=== PATIENT | female | born 1990 | race American Indian/Alaskan Native ===

== ENCOUNTER 2019-11-03 01:31 | Emergency (ER) | payer SELFPAY ==
[2019-11-03] MEDS ORDERED: HYDROmorphone 1 MG/1 ML INJ IV ONE (02:15)
[2019-11-03] MEDS ORDERED: SODIUM CHLORIDE 0.9% 1000 ML 1,000 ML IV ONE (02:15)
--- NOTE | 2019-11-03 02:15 | Emergency Department Report ---
ED Abdominal Pain HPI - General Chief Complaint: Abdominal Pain Stated Complaint: GALLBLADDER SYMPTOMS ABD PAIN NAUSEA VOMITING PUI?: No Time Seen by Provider: 11/03/19 02:06 Source: patient Mode of arrival: Ambulatory Limitations: No Limitations - History of Present Illness Initial Comments: Patient is a 29-year-old female that presents emergency room with multiple complaints. Patient's complaints include gallbladder pain in the right upper quadrant, suprapubic pain, nausea and vomiting, menstrual cramps, stomach spasms. Patient states that her abdominal pain is radiating to the back. Patient states her pain is a 10 out of 10. Patient states she is taking 3 times per day 800 mg ibuprofen with minimal relief. Patient states her pain is worsening. Patient states she has had gallbladder pain for a year however it s tarted yesterday her right upper quadrant pain. Patient states that her suprapubic pain and menstrual cramps started 2 days ago. Patient states her last menstrual period was 2 months ago and she is unsure if she is . Patient states she is sexually active. Patient denies dysuria. Patient states that her nausea and vomiting started yesterday and is worsening. Patient denies blood in her vomitus. Patient denies constipation. Patient denies recent travel. Patient denies recent international travel. Patient denies exposure to the novel coronavirus. Patient denies sick contacts. Patient denies fever and chills. Patient denies cough. Patient denies diarrhea. Patient denies coming in contact with anybody with symptoms of the novel coronavirus. MD Complaint: abdominal pain -: Sudden Location: RUQ, suprapubic Radiation: back Migration to: no migration Severity: severe Severity scale (0 -10): 10 Quality: stabbing Consistency: constant Improves With: rest Worsens With: movement Associated Symptoms: nausea, vomiting. denies: diarrhea, fever, chills, constipation, dysuria, hematemesis, hematochezia, melena, hematuria, syncope Treatments Prior to Arrival: NSAIDs - Related Data LMP (females 10-50): 3 months Home Medications Medication Instructions Recorded Confirmed Last Taken Amoxicillin/K Clav Tab [Augmentin 1 tab PO BID 05/14/13 05/14/13 05/13/13 875MG] Promethazine /Codeine 10 ml PO Q6H 03/16/14 03/16/14 03/15/14 [Phenergan/Codeine 6.25-10 mg/5 ml] Previous Rx's Medication Instructions Recorded Last Taken Type Ibuprofen [Motrin] 600 mg PO Q8H PRN #60 tablet 05/14/13 Unknown Rx Loratadine (Nf) [Claritin] 10 mg PO DAILY #30 tablet 05/14/13 Unknown Rx predniSONE [Deltasone] 50 mg PO QDAY #5 tab 05/14/13 Unknown Rx HYDROcodone/APAP 7.5-325 [[place] 1 each PO Q6HR PRN #10 tablet 11/03/19 Unknown Rx 7.5/325] Ondansetron [Zofran Odt] 4 mg PO Q6HR PRN #25 tab.rapdis 11/03/19 Unknown Rx Sulfamethoxazole/Trimethoprim 1 each PO BID 10 Days #20 tablet 11/03/19 Unknown Rx [Bactrim DS TAB] Allergies Allergy/AdvReac Type Severity Reaction Status Date / Time No Known Allergies Allergy Unverified 05/14/13 03:10 ED Review of Systems ROS: Stated complaint: GALLBLADDER SYMPTOMS ABD PAIN NAUSEA VOMITING Other details as noted in HPI Constitutional: denies: chills, fever Eyes: denies: eye pain, eye discharge, vision change ENT: denies: ear pain, throat pain Respiratory: denies: cough, shortness of breath, wheezing Cardiovascular: denies: chest pain, palpitations Endocrine: no symptoms reported Gastrointestinal: abdominal pain, nausea, vomiting. denies: diarrhea Genitourinary: denies: urgency, dysuria, discharge Musculoskeletal: denies: back pain, joint swelling, arthralgia Skin: denies: rash, lesions Neurological: denies: headache, weakness, paresthesias Psychiatric: denies: anxiety, depression Hematological/Lymphatic: denies: easy bleeding, easy bruising ED Past Medical Hx - Past Medical History Previous Medical History?: Yes Hx Asthma: Yes Additional medical history: Anemia. Gallbladder disease - Surgical History Past Surgical History?: No - Family History Family history: no significant - Social History Smoking Status: Former Smoker Substance Use Type: None - Medications Home Medications: Home Medications Medication Instructions Recorded Confirmed Last Taken Type Amoxicillin/K Clav Tab [Augmentin 1 tab PO BID 05/14/13 05/14/13 05/13/13 History 875MG] Ibuprofen [Motrin] 600 mg PO Q8H PRN #60 tablet 05/14/13 Unknown Rx Loratadine (Nf) [Claritin] 10 mg PO DAILY #30 tablet 05/14/13 Unknown Rx Promethazine /Codeine 10 ml PO Q6H 05/14/13 05/14/13 05/13/13 History [Phenergan/Codeine 6.25-10 mg/5 ml] predniSONE [Deltasone] 50 mg PO QDAY #5 tab 05/14/13 Unknown Rx HYDROcodone/APAP 7.5-325 [[place] 1 each PO Q6HR PRN #10 tablet 11/03/19 Unknown Rx 7.5/325] Ondansetron [Zofran Odt] 4 mg PO Q6HR PRN #25 tab.rapdis 11/03/19 Unknown Rx Sulfamethoxazole/Trimethoprim 1 each PO BID 10 Days #20 tablet 11/03/19 Unknown Rx [Bactrim DS TAB] ED Physical Exam - General Limitations: No Limitations General appearance: alert, in no apparent distress - Head Head exam: Present: atraumatic, normocephalic - Eye Eye exam: Present: normal appearance - ENT ENT exam: Present: mucous membranes moist - Neck Neck exam: Present: normal inspection - Respiratory Respiratory exam: Present: normal lung sounds bilaterally. Absent: respiratory distress - Cardiovascular Cardiovascular Exam: Present: regular rate, normal rhythm. Absent: systolic murmur, diastolic murmur, rubs, gallop - GI/Abdominal GI/Abdominal exam: Present: soft, tenderness (Generalized tenderness. Right upper quadrant tenderness to palpation.), normal bowel sounds - Rectal Rectal exam: Present: deferred - Extremities Exam Extremities exam: Present: normal inspection, full ROM, normal capillary refill. Absent: tenderness, calf tenderness - Back Exam Back exam: Present: normal inspection, full ROM. Absent: tenderness, CVA tenderness (R), CVA tenderness (L), muscle spasm - Neurological Exam Neurological exam: Present: alert, oriented X3 - Psychiatric Psychiatric exam: Present: normal affect, normal mood - Skin Skin exam: Present: warm, dry, intact, normal color. Absent: rash ED Course Vital Signs 11/03/19 11/03/19 11/03/19 01:40 02:40 03:00 Temperature 98.0 F Pulse Rate 88 82 Respiratory 16 19 Rate Blood Pressure 115/70 116/63 O2 Sat by Pulse 99 100 99 Oximetry 11/03/19 04:00 Temperature Pulse Rate 76 Respiratory 17 Rate Blood Pressure O2 Sat by Pulse 99 Oximetry - Reevaluation(s) Reevaluation #1: Patient complaining of nausea and vomiting. Patient will be given Zofran. 11/03/19 0310 Reevaluation #2: Patient is a complaint nausea and vomiting. Patient will be given another dose of Zofran. 11/03/19 04:08 Reevaluation #3: Patient given pain meds, fluids and antiemetics and patient states she is feeling much better. I discussed all results and clinical findings with patient. I discussed plan of care with patient. Patient agrees with plan of care. Patient is stable for discharge. Patient will be discharged home. Patient given discharge instructions. Patient voiced understanding of discharge instructions. 11/03/19 05:09 ED Medical Decision Making - Lab Data Result diagrams: 11/03/19 01:53 11/03/19 01:53 - Radiology Data Radiology results: report reviewed CT abdomen pelvis w con INDICATION: Patient complains of R.U.Q. abdominal pain with nausea and vomiting.. TECHNIQUE: All CT scans at this location are performed using the following dose modulation technique: Automated exposure control. CONTRAST: Omnipaque 300, 100 cc IV injection. COMPARISON: None available. CT ABDOMEN: The parenchymal organs are unremarkable in appearance. Negative for abdominal mass, fluid or inflammation. The bowel is not dilated or thickened. The gallbladder contains multiple stones. There is no adjacent inflammation. A fat-containing umbilical hernia is small. CT PELVIS: Negative for mass, fluid or inflammation. The appendix is normal. IMPRESSION: Gallstones. - Medical Decision Making Patient is a 29-year-old female that presents emergency room for multiple complaints. Patient complained abdominal pain, biliary colic pain, nausea, vomiting, amenorrhea since August. Patient had labs done which were essentially unremarkable. Patient's was negative. Patient has CT scan with IV contrast that was negative for acute findings of her gallstones. Patient's clinical findings are consistent with UTI, biliary colic and amenorrhea. Patient stable for discharge. Patient discharged home with pain meds, antiemetics and antibiotics. Patient given fluids, antibiotics and antiemetics in the ER and the patient responded well to therapy. Patient's pain and nausea resolved prior to discharge. - Differential Diagnosis Biliary colic, gallstones, cholecystitis, UTI, amenorrhea Critical care attestation.: If time is entered above; I have spent that time in minutes in the direct care of this critically ill patient, excluding procedure time. ED Disposition Clinical Impression: Biliary colic, Amenorrhea Abdominal pain Qualifiers: Abdominal location: generalized Qualified Code(s): R10.84 - Generalized abdominal pain UTI (urinary tract infection) Qualifiers: Urinary tract infection type: acute cystitis Hematuria presence: with hematuria Qualified Code(s): N30.01 - Acute cystitis with hematuria Gallstone Qualifiers: Cholecystitis presence: without cholecystitis Biliary obstruction: without biliary obstruction Qualified Code(s): K80.20 - Calculus of gallbladder without cholecystitis without obstruction Disposition: TO HOME OR SELFCARE Is pt being admited?: No Does the pt Need Aspirin: No Condition: Stable Instructions: Biliary Colic (ED), Urinary Tract Infection in Women (ED), Abdo joelle Pain (ED) Additional Instructions: Patient to follow-up with primary care in 2 to 3 days. Patient to follow-up with [facility] [facility] in 2 to 3 days. Patient to follow-up with general surgery in 2 to 3 days. Patient to rest. Patient to increase water. Patient to avoid strenuous exercise or heavy lifting until cleared by general surgery and primary care.. Patient to take Tylenol or ibuprofen as needed for pain. Patient to take meds as directed. Patient to return to the ER if condition worsens, changes or new symptoms arise. Prescriptions: Sulfamethoxazole/Trimethoprim [Bactrim DS TAB] 1 each PO BID 10 Days #20 tablet HYDROcodone/APAP 7.5-325 [[place] 7.5/325] 1 each PO Q6HR PRN #10 tablet PRN Reason: Pain Ondansetron [Zofran Odt] 4 mg PO Q6HR PRN #25 tab.rapdis PRN Reason: Nausea And Vomiting Referrals: PRIMARY CARE, [Primary Care Provider] - 2-3 Days KINA TAPIA MD [Staff Physician] - 2-3 Days LESLY ROOT DO [Staff Physician] - 2-3 Days Time of Disposition: 05:17
[2019-11-03 02:20] LABS: Hematocrit 32.2 % (30.3-42.9); Hemoglobin 10.7 gm/dl (10.1-14.3); Mean Corpuscular HGB Conc 33 % (30-34); Mean Corpuscular Volume 87 fl (79-97); Platelet Count 373 K/mm3 (140-440); Red Blood Count 3.71 M/mm3 (3.65-5.03)
[2019-11-03 02:32] LABS: Bacteria,Urine 1+ /HPF (Negative); Bilirubin,Urine NEG (Negative); Blood,Urine LG (Negative); Color,Urine Yellow (Yellow); Mucus,Urine 3+ /HPF; Protein,Urine <15 mg/dL mg/dL (Negative)
[2019-11-03 02:33] LABS: Alanine Aminotransferase 15 units/L (7-56); Albumin 3.7 g/dL (3.9-5); BUN/Creatinine Ratio 11; Blood Urea Nitrogen 9 mg/dL (7-17); Calcium 8.7 mg/dL (8.4-10.2); Hemolysis Index 64
[2019-11-03 02:58] LABS: RBC Morphology Normal; Total Cells Counted 100
[2019-11-03] MEDS ORDERED: ONDANSETRON 4 MG/2 ML INJ ONE (03:06)
[2019-11-03] MEDS ORDERED: ONDANSETRON 4 MG/2 ML INJ IV ONE ×2 (03:11→03:44)
[2019-11-03 04:09] VITALS: BP 116/63
--- NOTE | 2019-11-03 04:11 | Cat Scan Report ---
CT abdomen pelvis w con INDICATION: Patient complains of R.U.Q. abdominal pain with nausea and vomiting.. TECHNIQUE: All CT scans at this location are performed using the following dose modulation technique: Automated exposure control. CONTRAST: Omnipaque 300, 100 cc IV injection. COMPARISON: None available. CT ABDOMEN: The parenchymal organs are unremarkable in appearance. Negative for abdominal mass, fluid or inflammation. The bowel is not dilated or thickened. The gallbladder contains multiple stones. There is no adjacent inflammation. A fat-containing umbilical hernia is small. CT PELVIS: Negative for mass, fluid or inflammation. The appendix is normal. IMPRESSION: Gallstones. Signer Name: Hugo De Los Santos MD Signed: 11/03/2019 4:07 AM Workstation Name: [id number]
[2019-11-03] MEDS ORDERED: cefTRIAXone/NS 1 GM/50 ML 1 GM/50 ML BAG IV ONE (04:56)
== END 2019-11-03 05:20 | disposition home or self-care (01) ==
LOC: ED 01:31
DX: K80.20 Calculus of gallbladder without cholecystitis without obstruction (principal); N39.0 Urinary tract infection, site not specified; J45.909 Unspecified asthma, uncomplicated; D64.9 Anemia, unspecified; Z87.891 Personal history of nicotine dependence; Z79.899 Other long term (current) drug therapy
CPT/HCPCS: 36415; 74177; 80053; 81001; 84703; 85007; 85025; 87086; 96365; 96375; 96376; 99284; J1170; J2405; J7030; Q9967

== ENCOUNTER 2020-01-13 20:06 | Emergency (ER) | payer BC ==
[2020-01-13 20:39] LABS: Basophils # (Auto) 0.1 K/mm3 (0.0-0.1); Basophils % (Auto) 0.8 % (0.0-1.8); Eosinophils # (Auto) 0.1 K/mm3 (0.0-0.4); Eosinophils % (Auto) 1.3 % (0.0-4.3); Hematocrit 30.7 % (30.3-42.9); Hemoglobin 10.1 gm/dl (10.1-14.3); Lymphocytes # (Auto) 4.5 K/mm3 (1.2-5.4); Lymphocytes % (Auto) 42.9 % (13.4-35.0); Mean Corpuscular HGB Conc 33 % (30-34); Mean Corpuscular Volume 88 fl (79-97); Monocytes # (Auto) 0.8 K/mm3 (0.0-0.8); Monocytes % (Auto) 7.5 % (0.0-7.3); Platelet Count 368 K/mm3 (140-440); Red Blood Count 3.51 M/mm3 (3.65-5.03); Red Cell Distribution Width 15.6 % (13.2-15.2)
[2020-01-13 20:52] LABS: Bilirubin,Urine NEG (Negative); Blood,Urine LG (Negative); Color,Urine Yellow (Yellow); Mucus,Urine 3+ /HPF
[2020-01-13 20:54] LABS: Alanine Aminotransferase 14 units/L (7-56); BUN/Creatinine Ratio 10; Blood Urea Nitrogen 8 mg/dL (7-17); Hemolysis Index 6
[2020-01-13 21:01] LABS: HCG Qualitative,Urine Negative (Negative)
[2020-01-13] MEDS ORDERED: KETOROLAC 30 MG/1 ML INJ IV ONE (22:45)
[2020-01-13] MEDS ORDERED: fentaNYL 100 MCG/2 ML INJ IV ONE (22:45)
[2020-01-13] MEDS ORDERED: ONDANSETRON 4 MG/2 ML INJ IV ONE (22:45)
--- NOTE | 2020-01-13 22:48 | Emergency Department Report ---
HPI - General Chief Complaint: Abdominal Pain Time Seen by Provider: 01/13/20 22:35 - HPI HPI: Room 3 The patient is a 29-year-old female presenting with a chief complaint of pelvic cramping. The patient states she has had lower abdominal cramping and back pain for the past 18 days associated with vaginal bleeding. Patient states she goes through approximately 2 pads per day but passes large clots vaginally. Patient admits to nausea but denies vomiting. Patient states she has been compliant with her oral contraceptive for the past 3 months. Patient denies history of fever. Patient also complains of pain in the right upper quadrant which is chronic from cholelithiasis. Patient currently gives her pelvic pain a score of 12/10." ED Past Medical Hx - Past Medical History Previous Medical History?: Yes Hx Asthma: Yes Additional medical history: Anemia. Gallbladder disease - Surgical History Past Surgical History?: No - Family History Family history: no significant - Social History Smoking Status: Former Smoker Substance Use Type: None (Denies illicit drug use), Alcohol (Moderate) - Medications Home Medications: Home Medications Medication Instructions Recorded Confirmed Last Taken Type Amoxicillin/K Clav Tab [Augmentin 1 tab PO BID 05/14/13 05/14/13 05/13/13 History 875MG] Ibuprofen [Motrin] 600 mg PO Q8H PRN #60 tablet 05/14/13 Unknown Rx Loratadine (Nf) [Claritin] 10 mg PO DAILY #30 tablet 05/14/13 Unknown Rx Promethazine /Codeine 10 ml PO Q6H 05/14/13 05/14/13 05/13/13 History [Phenergan/Codeine 6.25-10 mg/5 ml] predniSONE [Deltasone] 50 mg PO QDAY #5 tab 05/14/13 Unknown Rx HYDROcodone/APAP 7.5-325 [[place] 1 each PO Q6HR PRN #10 tablet 11/03/19 Unknown Rx 7.5/325] Ondansetron [Zofran Odt] 4 mg PO Q6HR PRN #25 tab.rapdis 11/03/19 Unknown Rx Sulfamethoxazole/Trimethoprim 1 each PO BID 10 Days #20 tablet 11/03/19 Unknown Rx [Bactrim DS TAB] Ciprofloxacin HCl [Ciprofloxacin 500 mg PO Q12HR #6 tab 01/14/20 Unknown Rx TAB] HYDROcodone/APAP 5-325 [[place] 1 - 2 each PO Q6HR PRN #10 tablet 01/14/20 Unknown Rx 5/325] Ibuprofen [Motrin 800 MG tab] 800 mg PO Q8HR PRN #20 tablet 01/14/20 Unknown Rx ED Review of Systems ROS: Stated complaint: ABD PAINS Other details as noted in HPI Constitutional: denies: fever Eyes: denies: eye pain ENT: denies: throat pain Respiratory: no symptoms reported Endocrine: no symptoms reported Gastrointestinal: abdominal pain. denies: nausea, vomiting Genitourinary: abnormal menses. denies: dysuria Musculoskeletal: back pain Skin: denies: change in color Neurological: denies: headache Physical Exam - Physical Exam Vital Signs: Vital Signs 01/13/20 20:17 Temperature 98.1 F Pulse Rate 98 H Respiratory 18 Rate Blood Pressure 130/83 [Right] O2 Sat by Pulse 98 Oximetry Physical Exam: GENERAL: The patient is well-developed well-nourished female standing up leaning over stretcher appearing to be in mild discomfort. Patient states she feels better in this position HEENT: Normocephalic. Atraumatic. Extraocular motions are intact. Patient has moist mucous membranes. NECK: Supple. Trachea midline CHEST/LUNGS: Clear to auscultation. There is no respiratory distress noted. HEART/CARDIOVASCULAR: Regular. There is no tachycardia. There is no gallop rub or murmur. ABDOMEN: Abdomen is soft, with diffuse discomfort to palpation but greatest in the lower pelvis. There is no rebound or guarding. Patient has normal bowel sounds. There is no abdominal distention. SKIN: There is no rash. There is no edema. There is no diaphoresis. NEURO: The patient is awake, alert, and oriented. The patient is cooperative. The patient has normal speech MUSCULOSKELETAL: There is no evidence of acute injury. ED Course Vital Signs 01/13/20 20:17 Temperature 98.1 F Pulse Rate 98 H Respiratory 18 Rate Blood Pressure 130/83 [Right] O2 Sat by Pulse 98 Oximetry ED Medical Decision Making - Lab Data Result diagrams: 01/13/20 20:21 01/13/20 20:21 Laboratory Tests 01/13/20 01/13/20 01/13/20 20:21 20:21 20:27 WBC 10.5 RBC 3.51 L Hgb 10.1 Hct 30.7 MCV 88 MCH 29 MCHC 33 RDW 15.6 H Plt Count 368 Lymph % (Auto) 42.9 H Edwards % (Auto) 7.5 H Eos % (Auto) 1.3 Baso % (Auto) 0.8 Lymph # (Auto) 4.5 Edwards # (Auto) 0.8 Eos # (Auto) 0.1 Baso # (Auto) 0.1 Seg Neutrophils % 47.5 Seg Neutrophils # 5.0 Sodium 137 Potassium 3.7 Chloride 103.6 Carbon Dioxide 22 Anion Gap 15 BUN 8 Creatinine 0.8 Estimated GFR > 60 BUN/Creatinine Ratio 10 Glucose 99 Calcium 9.0 Total Bilirubin 0.20 AST 22 ALT 14 Alkaline Phosphatase 77 Total Protein 7.1 Albumin 4.0 Albumin/Globulin Ratio 1.3 Urine Color Yellow Urine Turbidity Slightly-cloudy Urine pH 6.0 Ur Specific [place] 1.021 Urine Protein 30 mg/dl Urine Glucose (UA) Neg Urine Ketones Neg Urine Blood Lg Urine Nitrite Pos Urine Bilirubin Neg Urine Urobilinogen 2.0 Ur Leukocyte Esterase Tr Urine WBC (Auto) 9.0 H Urine RBC (Auto) 30.0 U Epithel Cells (Auto) 21.0 H Urine Mucus 3+ Urine HCG, Qual Negative - Radiology Data Radiology results: report reviewed (Pelvic ultrasound), image reviewed (Pelvic ultrasound) [address] [address] Ultrasound Report Signed Patient: ISABELLA HARMAN MR#: [id number] : 0 1990 Acct:[id number] Age/Sex: 29 / F ADM Date: 01/13/20 Loc: ED Attending Dr: Ordering Physician: CHIN GALLEGOS MD Date of Service: 01/13/20 Procedure(s): US transvaginal Accession Number(s): [id number] cc: CHIN GALLEGOS MD ULTRASOUND PELVIS INDICATION / CLINICAL INFORMATION: Metromenorrhagia, pelvic cramping. TECHNIQUE: Transabdominal and Transvaginal. Duplex Color Doppler used: Yes. COMPARISON: None available FINDINGS: UTERUS: Present. - Appearance (if present): No significant abnormality. - Size in cm (if present): 6.0 x 2.5 x 4.0. - Endometrial Complex (if present): No significant abnormality. Measures 0.5 cm. - Mass lesions: None. - Additional findings: None. RIGHT ADNEXA: No significant ovarian cyst or mass. Normal color Doppler blood flow. LEFT ADNEXA: No significant ovarian cyst or mass. Normal color Doppler blood flow. URINARY BLADDER: No significant abnormality. FREE FLUID: None. ADDITIONAL FINDINGS: None. IMPRESSION: 1. No significant abnormality. Signer Name: Ronni Ziegler MD Signed: 01/13/2020 11:59 PM Workstation Name: [id number] Transcribed By: ROBERTO Dictated By: Ronni Ziegler MD Electronically Authenticated By: Ronni Ziegler MD Signed Date/Time: 01/13/202358 DD/ 57 TD/TT: - Differential Diagnosis Metromenorrhagia, uterine fibroids, , ectopic , missed ab Critical care attestation.: If time is entered above; I have spent that time in minutes in the direct care of this critically ill patient, excluding procedure time. ED Disposition Clinical Impression: Metrorrhagia, Pelvic cramping Disposition: TO HOME OR SELFCARE Is pt being admited?: No Does the pt Need Aspirin: No Condition: Stable Instructions: Abdominal Pain (ED), Metrorrhagia, [id number], Menorrhagia, [id number] Additional Instructions: Return to the emergency department should you develop worsening symptoms, inability to tolerate food or liquids, high fever or any other concerns Prescriptions: Ciprofloxacin HCl [Ciprofloxacin TAB] 500 mg PO Q12HR #6 tab Ibuprofen [Motrin 800 MG tab] 800 mg PO Q8HR PRN #20 tablet PRN Reason: Pain, Moderate (4-6) HYDROcodone/APAP 5-325 [[place] 5/325] 1 - 2 each PO Q6HR PRN #10 tablet PRN Reason: Pain Referrals: GISELLE BURROUGHS NP-C [Primary Care Provider] - 3-5 Days SHAKEEL PERDOMO CNM [Advanced Practice Nurse] - SON[place] (It is important that you follow-up with your [facility] as soon as possible for further management) Time of Disposition: 00:18
--- NOTE | 2020-01-14 00:03 | Ultrasound Report ---
ULTRASOUND PELVIS INDICATION / CLINICAL INFORMATION: Metromenorrhagia, pelvic cramping. TECHNIQUE: Transabdominal and Transvaginal. Duplex Color Doppler used: Yes. COMPARISON: None available FINDINGS: UTERUS: Present. - Appearance (if present): No significant abnormality. - Size in cm (if present): 6.0 x 2.5 x 4.0. - Endometrial Complex (if present): No significant abnormality. Measures 0.5 cm. - Mass lesions: None. - Additional findings: None. RIGHT ADNEXA: No significant ovarian cyst or mass. Normal color Doppler blood flow. LEFT ADNEXA: No significant ovarian cyst or mass. Normal color Doppler blood flow. URINARY BLADDER: No significant abnormality. FREE FLUID: None. ADDITIONAL FINDINGS: None. IMPRESSION: 1. No significant abnormality. Signer Name: Ronni Ziegler MD Signed: 01/13/2020 11:59 PM Workstation Name: [id number]
[2020-01-14 02:53] VITALS: BP 97/60
== END 2020-01-14 02:53 | disposition home or self-care (01) ==
LOC: ED 20:06
DX: N92.1 Excessive and frequent menstruation with irregular cycle (principal); R10.2 Pelvic and perineal pain; J45.909 Unspecified asthma, uncomplicated; Z87.891 Personal history of nicotine dependence; Z79.1 Long term (current) use of non-steroidal anti-inflammatories (NSAID); Z79.2 Long term (current) use of antibiotics; Z79.899 Other long term (current) drug therapy
CPT/HCPCS: 36415; 76830; 76856; 80053; 81001; 81025; 85025; 87086; 96374; 96375; 99284; J1885; J2405; J3010